=== PATIENT | male | born 1965 | race African-American/Black ===

== ENCOUNTER 2019-06-11 16:37 | Emergency (ER) | payer OTHER ==
[~2019-06-11] VITALS: Ht 167.6 cm; Wt 100.7 kg
[~2019-06-11 16:37] MED LIST: ASPI-612 PO; FLUT1DIS3 IH; HYDR-2761 PO; METF500T16 PO; PROM118S5 PO; TRAM50TA PO; VENTOLIN HFA18 GM INH; WARF-31 PO
[2019-06-11 17:16] VITALS: BP 198/108
--- NOTE | 2019-06-11 17:21 | PHYS DOC ---
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 He states he is an asthmatic and he does smoke but has not been taking any medications or seen a doctor. Patient denies shortness of air, chest pain, nausea, vomiting, fever, productive cough, abdominal pain, visual changes or numbness or tingling, headache or dizziness, syncope. Review of Systems Review of Systems Respiratory: cough or denies shortness of breath [] All other systems were reviewed and found to be within normal limits, except as documented in this note. Allergies Allergies Allergies Coded Allergies Type Severity Reaction Last Updated Verified Iodinated Contrast Media Allergy Intermediate itching 08/22/14 Yes Physical Exam Physical Exam Constitutional: Well developed, well nourished, no acute distress, non-toxic appearance. [] HENT: Normocephalic, atraumatic, bilateral external ears normal, oropharynx moist, no oral exudates, nose normal. [] Eyes: PERRLA, EOMI, conjunctiva normal, no discharge. [] Cardiovascular:Heart rate regular rhythm, no murmur [] Lungs & Thorax: Bilateral upper breath sounds clear and lower diminished to auscultation [] Skin: Warm, dry, no erythema, no rash. [] Extremities: No tenderness, no cyanosis, no clubbing, ROM intact, no edema. [] Neurologic: Alert and oriented X 3, normal motor function, normal sensory function, no focal deficits noted. [] Psychologic: Affect normal, judgement normal, mood normal. [] Current Patient Data Vital Signs Vital Signs Date Time Temp Pulse Resp B/P (MAP) Pulse Ox O2 Delivery O2 Flow Rate FiO2 06/11/19 17:16 97.7 72 18 198/108 (138) 96 Room Air 97.7 EKG EKG [] Radiology/Procedures Radiology/Procedures [] Impressions: [facility] [address] [place] [address] IMAGING REPORT Signed PATIENT: MELISSA CANELA JR LACCOUNT: [id number] : 1965 LOCATION: ER AGE: 54 SEX: M EXAM STATUS: REG ER ORD. PHYSICIAN: TRISTIN HAIRSTON APRN REASON: cough PROCEDURE: CHEST PA & LATERAL CHEST PA LATERAL History: Cough Comparison: March 31, 2015 Findings: No consolidation or pleural effusion. Normal heart size. Impression: 1. Minimal left basilar linear atelectasis or scarring. Electronically signed by: Lee Riojas DO (06/11/2019 6:02 PM) [facility] DICTATED and SIGNED BY: LEE RIOJAS DO DATE: 06/11/191801 Course & Med Decision Making Course & Med Decision Making Patient is a 54 year old male who presents with dry cough �1 year and has gotten worse. He states he is an asthmatic and he does smoke but has not been ta anurag any medications or seen a doctor. Patient denies shortness of air, chest pain, nausea, vomiting, fever, productive cough, abdominal pain, visual changes or numbness or tingling, headache or dizziness, syncope. Alert and oriented. Speaks in full clear sentences. Ambulatory with a steady gait. No extremity swelling. Patient is hypertensive at 198/100. Lungs are clear in upper lobes but diminished in lower lobes. Skin pink warm and dry. PERRLA. Patient be treated Medrol Dosepak and given a albuterol inhaler. Patient is told that he needs to follow up with a doctor immediately so he can get restarted on all of his medications. Dragon Disclaimer Dragon Disclaimer This electronic medical record was generated, in whole or in part, using a voice recognition dictation system. Departure Departure Impression: Primary Impression: Cough Disposition: 01 HOME, SELF-CARE Condition: STABLE Referrals: NO PCP (PCP) Patient Instructions: Asthma, Adult, Cough, Adult Additional Instructions: Follow up with a physician as soon as possible to get back on all of your medications. Take medications as prescribed. Stop smoking. Scripts Albuterol Sulfate (PROAIR HFA INHALER) 8.5 Gm Hfa.aer.ad 1 PUFF INH PRN Q6HRS PRN for SHORTNESS OF BREATH, #1 INHALER 0 Refills Prov: TRISTIN HAIRSTON APRN 06/11/19 Methylprednisolone (MEDROL) 4 Mg Tab.ds.pk 1 PKG PO UD, #1 PKG Prov: TRISTIN HAIRSTON APRN 06/11/19 TRISTIN HAIRSTON APRN Jun 11, 2019 17:21
--- NOTE | 2019-06-11 18:04 | RAD ---
CHEST PA LATERAL History: Cough Comparison: March 31, 2015 Findings: No consolidation or pleural effusion. Normal heart size. Impression: 1. Minimal left basilar linear atelectasis or scarring. Electronically signed by: Lee Carter DO (06/11/2019 6:02 PM) [facility]
[2019-06-11] MEDS ORDERED: ALBU2.5V8 INH (18:09)
[2019-06-11] MEDS ORDERED: METH4TAB2 PO (18:09)
== END 2019-06-11 18:27 | disposition home or self-care (01) ==
LOC: ER 16:37
DX: R05 Cough (principal); J45.909 Unspecified asthma, uncomplicated; F31.9 Bipolar disorder, unspecified; E11.9 Type 2 diabetes mellitus without complications; I10 Essential (primary) hypertension; F20.9 Schizophrenia, unspecified; G89.29 Other chronic pain; I25.2 Old myocardial infarction; Z86.73 Personal history of transient ischemic attack (TIA), and cerebral infarction without residual deficits; Z86.718 Personal history of other venous thrombosis and embolism; Z91.041 Radiographic dye allergy status
CPT/HCPCS: 71046; 99283; 99284

== ENCOUNTER 2020-12-12 17:53 | Emergency (ER) | payer SELFPAY ==
[~2020-12-12] VITALS: Ht 167.6 cm; Wt 90.9 kg
[~2020-12-12 17:53] MED LIST changes: +ALBU2.5V8 INH; -ASPI-612 PO; +ASPI-886 PO; +METH4TAB2 PO
--- NOTE | 2020-12-12 18:35 | PHYS DOC ---
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, sleep apnea, chronic back pain (TRISTIN HAIRSTON BOTTLER HELPER) Past Surgical History: Other Additional Past Surgical Histo: hernia repair (TRISTIN HAIRSTON APRN) Smoking Status: Current Every Day Smoker Additional Information: > 0.5 PPD Alcohol Use: Occasionally Drug Use: Marijuana (TRISTIN HAIRSTON APRN) General Adult EDM: Chief Complaint: FOOT INJURY PAIN HPI: HPI: Patient is a 55 year old male who presents with for the last couple of weeks patient has had a small nodule tender pea-sized skin colored bump to the bottom of his foot with the center of the bottom of the foot towards arch area. States it hurts and since a sharp pain up the leg whenever he is up and trying to walk on it. Rates his pain an 8 out of 10. He states been taking Tylenol at home not relief. He states that he does not have a primary care doctor at this time. Patient denies injury, skin color change, numbness or tingling, focal weakness. (TRISTIN HAIRSTON BOTTLER HELPER) Review of Systems: Review of Systems: Constitutional: Denies fever or chills. [] Eyes: Denies change in visual acuity. [] HENT: Denies nasal congestion or sore throat. [] Respiratory: Denies cough or shortness of breath. [] Cardiovascular: Denies chest pain or edema. [] GI: Denies abdominal pain, nausea, vomiting, bloody stools or diarrhea. [] : Denies dysuria. [] Musculoskeletal: Denies back pain or joint pain. + Left foot [] Integument: Denies rash. + Tender bump to bottom of left foot [] Neurologic: Denies headache, focal weakness or sensory changes. [] Endocrine: Denies polyuria or polydipsia. [] Lymphatic: Denies swollen glands. [] Psychiatric: Denies depression or anxiety. [] (TRISTIN HAIRSTON BOTTLER HELPER) Heart Score: C/O Chest Pain: No Risk Factors: Risk Factors: DM, Current or recent (<one month) smoker, HTN, HLP, family history of CAD, obesity. Risk Scores: Score 0 - 3: 2.5% MACE over next 6 weeks - Discharge Home Score 4 - 6: 20.3% MACE over next 6 weeks - Admit for Clinical Observation Score 7 - 10: 72.7% MACE over next 6 weeks - Early Invasive Strategies (TRISTIN HAIRSTON APRN) Current Medications: Current Medications Medications (Trade) Dose Ordered Sig/[place] Start Time Stop Time Status Last Admin Dose Admin Acetaminophen/ Hydrocodone Bitart (Lortab 5/325) 1 tab 1X ONCE 12/12/20 18:30 12/12/20 18:31 UNV (TRISTIN HAIRSTON BOTTLER HELPER) Allergies: Allergies: Allergies Coded Allergies Type Severity Reaction Last Updated Verified Iodinated Contrast Media Allergy Intermediate itching 08/22/14 Yes ([facility]) Physical Exam: PE: Constitutional: Well developed, well nourished, no acute distress, non-toxic a ppearance. [] HENT: Normocephalic, atraumatic, bilateral external ears normal, oropharynx moist, no oral exudates, nose normal. [] Eyes: PERRLA, EOMI, conjunctiva normal, no discharge. [] Neck: Normal range of motion, no tenderness, supple, no stridor. [] Cardiovascular:Heart rate regular rhythm, no murmur [] Lungs & Thorax: Bilateral breath sounds clear to auscultation [] Abdomen: Bowel sounds normal, soft, no tenderness, no masses, no pulsatile masses. [] Skin: Warm, dry, no erythema, no rash. Small skin colored pea-sized tender lump to the bottom of the left foot [] Back: No tenderness, no CVA tenderness. [] Extremities: Bottom of left foot tenderness, no cyanosis, no clubbing, ROM intact, no edema. [] Neurologic: Alert and oriented X 3, normal motor function, normal sensory function, no focal deficits noted. [] Psychologic: Affect normal, judgement normal, mood normal. [] ([facility] BOTTLER HELPER) Current Patient Data: Vital Signs: Vital Signs Date Time Temp Pulse Resp B/P (MAP) Pulse Ox O2 Delivery O2 Flow Rate FiO2 12/12/20 17:58 98.7 97 16 138/90 (106) 96 Room Air 98.7 ([facility] BOTTLER HELPER) EKG: EKG: [] (TRISTIN HAIRSTON APRN) Radiology/Procedures: Radiology/Procedures: [] Impression: [facility] [address] [place] [address] IMAGING REPORT Signed PATIENT: MELISSA CANELA JR LACCOUNT: [id number] : 1965 LOCATION: ER AGE: 55 SEX: M EXAM STATUS: REG ER ORD. PHYSICIAN: TRISTIN HAIRSTON APRN REASON: painful knot on bottom of foot PROCEDURE: FOOT LEFT 3V Exam: Left foot 3 views INDICATION: Painful knot top of foot TECHNIQUE: Frontal, lateral and oblique views of the left foot Comparisons: None FINDINGS: Bone mineralization is normal. No acute or healed fractures. Soft tissues are unremarkable. Moderate degenerative change at the first MTP joint. IMPRESSION: No acute osseous abnormality at the left foot Electronically signed by: Rosi Laura MD (12/12/2020 7:55 PM) [facility] DICTATED and SIGNED BY: ROSI LAURA MD DATE: 12/12/20 [id number] (TRISTIN HAIRSTON APRN) Course & Med Decision Making: Course & Med Decision Making Pertinent Labs and Imaging studies reviewed. (See chart for details) See HPI. Pedal pulse strong and present. Ambulatory with a steady gait. Speaks in full clear sentences. Cap refill less than 2 seconds. Patient can wiggle his toes. There is no swelling of the foot. Skin pink warm and dry. [] (TRISTIN HAIRSTON APRN) Dragon Disclaimer: Dragon Disclaimer: This electronic medical record was generated, in whole or in part, using a voice recognition dictation system. (TRISTIN HAIRSTON APRN) Departure Departure Impression: Primary Impression: Foot pain, left Disposition: 01 DC HOME SELF CARE/HOMELESS Condition: STABLE Referrals: NO PCP (PCP) ALMA MICHAEL MD Patient Instructions: Plantar Fasciitis Additional Instructions: Follow up with primary care provider if needed. Also follow up with a inclusion intern of your choice for continuation of care with a specialty. Use ice and Ibuprofen to help with pain. Scripts Ibuprofen (IBUPROFEN) 600 Mg Tablet 600 MG PO PRN Q6HRS PRN for INFLAMMATION, #26 TAB Prov: TRISTIN HAIRSTON APRN 12/12/20 Attending Signature Attending Signature I have reviewed the PA/CHARHOUSE WORKER's note and plan of care. I was available for consultation as needed during the patient's visit in the emergency department. I agree with the clinical impression, plan, and disposition. (IVAN PALACIO DO) TRISTIN HAIRSTON APRN Dec 12, 2020 18:35 IVAN PALACIO DO Dec 13, 2020 02:58
[2020-12-12] MEDS ORDERED: HYDROcodone/APAP 5/325MG 1 TAB TABLET PO ONE (19:00)
--- NOTE | 2020-12-12 19:58 | RAD ---
Exam: Left foot 3 views INDICATION: Painful knot top of foot TECHNIQUE: Frontal, lateral and oblique views of the left foot Comparisons: None FINDINGS: Bone mineralization is normal. No acute or healed fractures. Soft tissues are unremarkable. Moderate degenerative change at the first MTP joint. IMPRESSION: No acute osseous abnormality at the left foot Electronically signed by: Rosi Alba MD (12/12/2020 7:55 PM) YESY
[2020-12-12] MEDS ORDERED: IBUP-1007 PO (20:10)
[2020-12-12 20:47] VITALS: BP 169/106
== END 2020-12-12 20:47 | disposition home or self-care (01) ==
LOC: ER 17:53
DX: M79.672 Pain in left foot (principal); J45.909 Unspecified asthma, uncomplicated; F31.9 Bipolar disorder, unspecified; E11.9 Type 2 diabetes mellitus without complications; I10 Essential (primary) hypertension; F20.9 Schizophrenia, unspecified; I25.2 Old myocardial infarction; G89.29 Other chronic pain; F17.200 Nicotine dependence, unspecified, uncomplicated; F12.90 Cannabis use, unspecified, uncomplicated; Z86.73 Personal history of transient ischemic attack (TIA), and cerebral infarction without residual deficits; Z98.890 Other specified postprocedural states; Z91.040 Latex allergy status
CPT/HCPCS: 73630; 99283

== ENCOUNTER 2021-03-14 11:54 | Emergency (ER) | payer SELFPAY ==
[~2021-03-14] VITALS: Ht 162.6 cm; Wt 100.0 kg
[~2021-03-14 11:54] MED LIST changes: +IBUP-1007 PO
--- NOTE | 2021-03-14 13:23 | RAD ---
Single AP view of the chest. Comparison: 06/11/2019. Indication: Shortness of breath Findings: The heart is at the upper limits of normal. There is no pneumothorax or effusion. No air space or in terstitial disease. Impression: 1. No acute cardiopulmonary process. Electronically signed by: Lencho Cho MD (03/14/2021 1:20 PM) [id number]
[2021-03-14 13:50] LABS: BASO % 1 % (0-3); EOS # 0.1 x10^3/uL (0.0-0.7); EOS % 2 % (0-3); HEMOGLOBIN 15.8 g/dL (13.0-17.5); LYMPH # 2.2 x10^3/uL (1.0-4.8); LYMPH % 38 % (24-48); MEAN CORPUSCULAR HEMOGLOBIN 28 pg (25-35); MEAN CORPUSCULAR HGB CONC 34 g/dL (31-37); MEAN CORPUSCULAR VOLUME 84 fL (79-100); MONO # 0.6 x10^3/uL (0.0-1.1); MONO % 11 % (0-9); NEUT # 2.7 x10^3/uL (1.8-7.7); NEUT % 48 % (31-73); PLATELET COUNT 214 x10^3/uL (140-400); RED BLOOD COUNT 5.61 x10^6/uL (4.30-5.70); RED CELL DISTRIBUTION WIDTH 14.1 % (11.5-14.5); WHITE BLOOD COUNT 5.6 x10^3/uL (4.0-11.0)
[2021-03-14] MEDS ORDERED: IPRATRPIUM/ALBUTEROL 0.5/2.5MG 3 ML NEBU. NEB ONE (14:15)
[2021-03-14] MEDS ORDERED: DEXAMETHASONE SOD PHOS 20 MG/5 ML VIAL. IV ONE (14:15)
[2021-03-14] MEDS ORDERED: ACETAMINOPHEN 325 MG TABLET. PO ONE (14:15)
[2021-03-14 14:53] LABS: CALCIUM 8.6 mg/dL (8.5-10.1); CREATININE 1.2 mg/dL (0.7-1.3); GFR 75.8; POTASSIUM 4.2 mmol/L (3.5-5.1)
--- NOTE | 2021-03-14 14:57 | EKG ---
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
[2021-03-14 14:59] LABS: ALBUMIN 3.2 g/dL (3.4-5.0); ALBUMIN/GLOBULIN RATIO 0.8 (1.0-1.7); TOTAL BILIRUBIN 0.3 mg/dL (0.2-1.0); TOTAL PROTEIN 7.2 g/dL (6.4-8.2)
--- NOTE | 2021-03-14 15:38 | PHYS DOC ---
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 States he attempted going to 3 different emergency departments last night but was unable to be seen due to long ER wait time (multiple hospitals currently on high volume). Pt reported to rn, h/o dvt, non compliant with anticoagulation. Review of Systems: Review of Systems: Constitutional: Denies fever or chills. [] Eyes: Denies change in visual acuity. [] HENT: Denies nasal congestion or sore throat. [] Respiratory: Denies cough or hemoptysis Cardiovascular: Denies syncope or edema. [] GI: Denies abdominal pain, nausea, vomiting, bloody stools or diarrhea. [] : Denies dysuria or hematuria Musculoskeletal: Denies back pain or joint pain. [] Integument: Denies rash or diaphoresis Neurologic: Denies headache, focal weakness or sensory changes. [] Endocrine: Denies polyuria or polydipsia. [] Lymphatic: Denies swollen glands. [] Psychiatric: Denies depression or anxiety. [] Heart Score: C/O Chest Pain: No Risk Factors: Risk Factors: DM, Current or recent (<one month) smoker, HTN, HLP, family histo ry of CAD, obesity. Risk Scores: Score 0 - 3: 2.5% MACE over next 6 weeks - Discharge Home Score 4 - 6: 20.3% MACE over next 6 weeks - Admit for Clinical Observation Score 7 - 10: 72.7% MACE over next 6 weeks - Early Invasive Strategies Current Medications: Current Medications Medications (Trade) Dose Ordered Sig/[place] Start Time Stop Time Status Last Admin Dose Admin Acetaminophen (Tylenol) 650 mg 1X ONCE 03/14/21 14:15 03/14/21 14:20 DC 03/14/21 15:03 650 MG Albuterol/ Ipratropium (Duoneb) 3 ml 1X ONCE 03/14/21 14:15 03/14/21 14:20 DC 03/14/21 14:15 3 ML Dexamethasone Sodium Phosphate (Decadron) 10 mg 1X ONCE 03/14/21 14:15 03/14/21 14:20 DC 03/14/21 15:03 10 MG Allergies: Allergies: Allergies Coded Allergies Type Severity Reaction Last Updated Verified Iodinated Contrast Media Allergy Intermediate itching 08/22/14 Yes Physical Exam: PE: Constitutional: Well developed, well nourished, no acute distress, non-toxic appearance. HENT: Normocephalic, atraumatic, Eyes: EOMI, conjunctiva normal, no discharge. Neck: Normal range of motion, supple, Cardiovascular: S1/2 present, regular rhythm Lungs & Thorax: Speaking in full sentences, bilateral equal chest rise, no tachypnea or increased work of breathing, expiratory wheezing present, breath sounds bilaterally, no rales or crackles Abdomen: soft, no tenderness, Skin: Warm, dry, no erythema, no rash. [] Back: No tenderness, no CVA tenderness. [] Extremities: No tenderness, no cyanosis, no unilateral lower extremity edema Neurologic: Alert and oriented X 3, normal motor function, normal sensory function, no focal deficits noted. [] Psychologic: Affect normal, judgement normal, mood normal. [] Current Patient Data: Labs: Laboratory Tests Test 03/14/21 13:35 03/14/21 14:30 White Blood Count 5.6 x10^3/uL (4.0-11.0) Red Blood Count 5.61 x10^6/uL (4.30-5.70) Hemoglobin 15.8 g/dL (13.0-17.5) Hematocrit 47.0 % (39.0-53.0) Mean Corpuscular Volume 84 fL (79-100) Mean Corpuscular Hemoglobin 28 pg (25-35) Mean Corpuscular Hemoglobin Concent 34 g/dL (31-37) Red Cell Distribution Width 14.1 % (11.5-14.5) Platelet Count 214 x10^3/uL (140-400) Neutrophils (%) (Auto) 48 % (31-73) Lymphocytes (%) (Auto) 38 % (24-48) Monocytes (%) (Auto) 11 % (0-9) H Eosinophils (%) (Auto) 2 % (0-3) Basophils (%) (Auto) 1 % (0-3) Neutrophils # (Auto) 2.7 x10^3/uL (1.8-7.7) Lymphocytes # (Auto) 2.2 x10^3/uL (1.0-4.8) Monocytes # (Auto) 0.6 x10^3/uL (0.0-1.1) Eosinophils # (Auto) 0.1 x10^3/uL (0.0-0.7) Basophils # (Auto) 0.0 x10^3/uL (0.0-0.2) Sodium Level 139 mmol/L (136-145) Potassium Level 4.2 mmol/L (3.5-5.1) Chloride Level 104 mmol/L (98-107) Carbon Dioxide Level 25 mmol/L (21-32) Anion Gap 10 (6-14) Blood Urea Nitrogen 8 mg/dL (8-26) Creatinine 1.2 mg/dL (0.7-1.3) Estimated GFR (Cockcroft-Gault) 75.8 BUN/Creatinine Ratio 7 (6-20) Glucose Level 89 mg/dL (70-99) Calcium Level 8.6 mg/dL (8.5-10.1) Total Bilirubin 0.3 mg/dL (0.2-1.0) Aspartate Amino Transferase (AST) 25 U/L (15-37) Alanine Aminotransferase (ALT) 19 U/L (16-63) Alkaline Phosphatase 57 U/L (46-116) Troponin I Quantitative < 0.017 ng/mL (0.000-0.055) [id number]-[id number]-Type Natriuretic Peptide 66 pg/mL (0-124) Total Protein 7.2 g/dL (6.4-8.2) Albumin 3.2 g/dL (3.4-5.0) L Albumin/Globulin Ratio 0.8 (1.0-1.7) L Laboratory Tests 03/14/21 13:35 Laboratory Tests 03/14/21 14:30 Vital Signs: Vital Signs Date Time Temp Pulse Resp B/P (MAP) Pulse Ox O2 Delivery O2 Flow Rate FiO2 03/14/21 14:26 98 Room Air 03/14/21 12:48 98.7 68 12 151/94 (127) 98.7 EKG: EKG: Sinus rhythm 70 bpm, no axis deviation, normal intervals, T wave inversion lead III, Q waves lead III, no ST elevations or ST depressions, no active chest pain Radiology/Procedures: Radiology/Procedures: IMAGING REPORT Signed PATIENT: MELISSA CASTREJON LACCOUNT: [id number] : 1965 LOCATION: ER AGE: 55 SEX: M EXAM STATUS: REG ER ORD. PHYSICIAN: KATIUSKA FRANCIS DO REASON: SHORT OF BREATH PROCEDURE: PORTABLE CHEST 1V Single AP view of the chest. Comparison: 06/11/2019. Indication: Shortness of breath Findings: The heart is at the upper limits of normal. There is no pneumothorax or effusion. No air space or interstitial disease. Impression: 1. No acute cardiopulmonary process. Electronically signed by: Lencho Griffin MD (03/14/2021 1:20 PM) [id number] DICTATED and SIGNED BY: LENCHO GRIFFIN MD DATE: 03/14/21 [id number] 0 Course & Med Decision Making: Course & Med Decision Making Pertinent Labs and Imaging studies reviewed. (See chart for details) Concern for dyspnea, initial impression consistent with mild asthma exacerbation in the setting of medication noncompliance, is needing albuterol inhaler refilled. Patient with inconsistent history. Given reported history of DVT (consistent w/emr) and anticoagulant noncompliance, CTA of the chest pending to evaluate for life-threatening pulmonary embolus. EKG with no new ischemia. Troponin negative. Chest x-ray with no infiltrates. Covid not high on my diffe rential. Patient's fianc present at bedside, (patient consents to his/her/their knowledge and involvement in pts' medical care). Patient received dexamethasone and breathing treatments in the ED. Was to be given IV Benadryl for pretreatment. History of urticaria with IV contrast. Patient states he feels well and is wishing to be discharged. Educated patient that he is not clear of and life-threatening pulmonary embolus/differential listed below. Life/limb-threatening differential includes but is not limited to, ACS, dysrhythmia, pneumothorax or hemothorax, pulmonary embolus, pneumonia, bronchoconstriction, pulmonary edema, angioedema, epiglottitis, tracheitis, Kit's angina, RPA/STREET ENGINEER, anaphylaxis, angioedema, cardiac tamponade or murmurs, pericarditis, myocarditis, poisoning or toxicity, sepsis or autoimmune/neurologic disease. The patient has decided to leave our facility against medical advice. I have assessed patient's ability to make informed decision and feel the patient has the capacity to comprehend information regarding the current medical condition and appreciates the impact of the disease or condition and the consequences of various options for treatment, including foregoing treatment. The patient possesses the ability to evaluate all treatment options, comparing the risks and benefits of each option, communicate his or her choice in a consistent manner over time, and is able to make rational choices. I explained to the patient further testing, treatment, and evaluation I would like to perform in the emergency department visit as well as any possible alternatives that can be accomplished in a timely manner. I have outlined the possible risks of for egoing any or all of these interventions and the patient understands and acknowledges that the decision to leave may result in undesirable consequences such as , permanent disability, and/or loss of current lifestyle. Even though leaving AMA is not ideal, I have instructed the patient to follow any discharge instructions given, take any medications prescribed, and resume care as soon as possible with another provider. This conversation was witnessed by another member of the emergency department staff and we clearly communicated the patient is welcome to return anytime to continue care at our facility. Letty Disclaimer: Letty Disclaimer: This electronic medical record was generated, in whole or in part, using a voice recognition dictation system. Departure Departure Impression: Primary Impression: Dyspnea Additional Impressions: Chest pain Asthma Left against medical advice Disposition: LEFT AGAINST MEDICAL ADVICE Condition: STABLE Referrals: NO PCP (PCP) In 24 hours for reevaluation or return to emergency department Patient Instructions: Asthma, Adult, Discharge Against Medical Advice, Shortness of Breath Additional Instructions: Follow-up with your primary care physician in 24 to 48 hours OR FOLLOW UP WITH FAMILY MEDICINE: [address] [facility] [place] [address] FOLLOW UP WITH CARDIOLOGY: FOR DEFINITIVE MANAGEMENT of chest pain [facility] [address] [place] [address] [place] [address] FOLLOW UP WITH PULMONOLOGY: FOR DEFINITIVE MANAGEMENT of asthma [facility] [address] [place] [address] EMERGENCY DEPARTMENT GENERAL DISCHARGE INSTRUCTIONS Thank you for coming to [facility] Emergency Department (ED) today and trusting us with you care. We trust that you had a positive experience in our Emergency Department. If you wish to speak to the department management, you may call the Director at [phone]. YOUR FOLLOW UP INSTRUCTIONS ARE FOLLOWS: 1. Do you have a private Doctor? If you do not have a private doctor, please ask for a resource list of physicians or clinics that may be able to assist you with follow up care. 2. The Emergency Physicain has interpreted your x-rays. The X-Ray specialist will also review them. If there is a change in the findings, you will be notified in 48 hours when at all possible. 3. A lab test or culture has been done, your results will be reviewed and you will be notified if you need a change in treatment. ADDITIONAL INSTRUCTIONS AND INFORMATION: 1. Your care today has been supervised by a physician who is specially trained in emergency care. Many problems require more than one evaluation for a complete diagnosis and treatment. We recommend that you schedule your follow up appointment as recommended to ensure complete treatment of you illness or injury. If you are unable to obtain follow up care and continue to have a problem, or if your condition worsens, we recommend that you return to the ED. 2. We are not able to safely determine your condition over the phone nor are we able to give sound medical advice over the phone. For these safety reasons, if you call for medical advice we will ask you to come to the ED for further evaluation. 3. If you have any questions regarding these discharge instructions please call the ED at [phone]. SAFETY INFORMATION: In the interest of safety, wellness, and injury prevention; we encourage you to wear your sealbelt, if you smoke; quite smoking, and we encourage family to use a protective helmet for bicycling and other sporting events that present an increased risk for head injury. IF YOUR SYMPTOMS WORSEN OR NEW SYMPTOMS DEVELOP, OR YOU HAVE CONCERNS ABOUT YOUR CONDITION; OR IF YOUR CONDITION WORSENS WHILE YOU ARE WAITING FOR YOUR FOLLOW UP APPOINTMENT; EITHER CONTACT YOUR PRIMARY CARE DOCTOR, THE PHYSICIAN WHOSE NAME AND NUMBER YOU WERE GIVEN, OR RETURN TO THE ED IMMEDIATELY. Scripts Fluticasone Propionate (FLOVENT 44MCG HFA) 10.6 Gm Aer.w.adap 2 PUFF IH BID for 30 Days, #10.6 GM 2 Refills Prov: KATIUSKA FRANCIS DO 03/14/21 Albuterol Sulfate (VENTOLIN HFA INHALER) 18 Gm Hfa.aer.ad 2 PUFF INH QID for FOR ASTHMA, #1 INHALER 0 Refills Prov: KATIUSKA FRANCIS DO 03/14/21 Prednisone (PREDNISONE) 50 Mg Tablet 1 TAB PO DAILY for 4 Days, #4 TAB Prov: KATIUSKA FRANCIS DO 03/14/21 KATIUSKA FRANCIS DO Mar 14, 2021 15:38
[2021-03-14] MEDS ORDERED: HYDROmorphone 2 MG/ML VIAL IVP ONE (15:45)
[2021-03-14 15:48] VITALS: BP 152/93
[2021-03-14] MEDS ORDERED: diphenhydrAMINE 50 MG/ML VIAL IVP ONE (16:30)
[2021-03-14] MEDS ORDERED: PRED50TA PO (16:49)
[2021-03-14] MEDS ORDERED: VENTOLIN HFA18 GM INH (16:49)
[2021-03-14] MEDS ORDERED: FLUT10.6 IH (16:49)
== END 2021-03-14 17:03 | disposition left against medical advice (07) ==
LOC: ER 11:54
DX: J45.909 Unspecified asthma, uncomplicated (principal); R07.89 Other chest pain; F31.9 Bipolar disorder, unspecified; E11.9 Type 2 diabetes mellitus without complications; I10 Essential (primary) hypertension; G89.29 Other chronic pain; F20.9 Schizophrenia, unspecified; Z86.718 Personal history of other venous thrombosis and embolism; Z86.73 Personal history of transient ischemic attack (TIA), and cerebral infarction without residual deficits; I25.2 Old myocardial infarction; F17.200 Nicotine dependence, unspecified, uncomplicated; Z91.041 Radiographic dye allergy status
CPT/HCPCS: 36415; 71045; 80053; 83880; 84484; 85025; 93005; 94640; 96374; 99285; J1100